=== PATIENT | female | born 1955 | race Caucasian/White ===

== ENCOUNTER → 2017-08-24 09:33 | Day surgery (SDC) | payer MEDICARE, MEDICAID, SELFPAY ==
[2017-08-23 13:11] VITALS: BMI 50.2
[2017-08-24 09:56] LABS: Hematocrit 33.8 % (37-47); Hemoglobin 10.7 g/dl (12.0-15.0); Mean Corp Hgb Conc 31.7 g/gl (32-36); Mean Corpuscular Hgb 32.8 pg (27.0-32.0); Mean Corpuscular Volume 103.7 fL (81-99); Mean Platelet Vol. 10.1 fl (6.2-12.0); Platelet Count 180 K/mm3 (150-450); RBC Distribution Width SD 55.7 fl (35.1-43.9); Red Blood Count 3.26 M/mm3 (4.2-5.4); White Blood Count 8.2 K/mm3 (4.4-11.0)
[2017-08-24 09:59] LABS: Scan Indicated on CBC? Y/N NO
[2017-08-24 10:08] LABS: Anion Gap 6 (5-15); BUN 14 mg/dL (7-18); BUN/Creat Ratio 3.1 RATIO (10-20); Calcium,Total 9.2 mg/dL (8.5-10.1); Chloride 104 mmol/L (98-107); Creatinine, Serum 4.48 mg/dL (0.55-1.02); EST Glomerular Filtration Rate 11 mL/min (>60); Est Glom Filt Rate - Afr Amer 13 mL/min (>60); Estimated Creatinine Clearance 13.61 ml/min; Glucose 122 mg/dL (74-106); Potassium 4.5 mmol/L (3.5-5.1); Sodium Level 142 mmol/L (136-145)
--- NOTE | 2017-08-24 12:29 | PCM.OPRPT ---
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 62-year-old female was taken to the special procedures lab. She was placed on the table. She received 50 mcg of fentanyl 1 mg of Versed. The right extremity sterilely prepped draped. Under ultrasound guidance micropuncture needle was inserted in the mid to more proximal right upper arm retrograde with flow. Micropuncture wire needle and guidewire inserted. 6 [place] short sheath dilator was inserted. An 035 angled Glidewire was used to place a 4 [place] angled glide cath into the brachial artery proximal to the anastomosis. Using Isovue contrast fistulogram was obtained of the upper arm. 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 It demonstrated an area of at least 90% stenosis within approximately 3 cm of the anastomosis. In addition there was central flow within backflow into the right internal jugular vein and no clear visible channel flow into the innominate SVC was identified. A slight lower of very faint contrast seen within the right atrium. The proximal fistula venous stenosis was treated with a 9 x 2 [facility] balloon over the 035 angled Glidewire. This was inflated to 22 tomasa of pressure. This was held for 3 minutes. Post treatment films demonstrated resolution of the inflow problem. This point I removed the sheath. I placed a U suture of 4-0 nylon. Hemostasis was intact. There was a pulse, thrill, bruit. My plan will be to see how she tolerates dialysis. If she continues to have difficulties with dialysis then would consider tertiary referral for treatment of the outflow high-grade critical stenosis at the innominate. Romero Obregon M.D., F.A.C.S. Type of Anesthesia:: IV Sedation
== END ==
PROVIDERS: Visit Provider Surgery
DX: T82.590A Other mechanical complication of surgically created arteriovenous fistula, initial encounter (principal); Z79.899 Other long term (current) drug therapy; Z79.82 Long term (current) use of aspirin; E78.00 Pure hypercholesterolemia, unspecified; G25.81 Restless legs syndrome; K21.9 Gastro-esophageal reflux disease without esophagitis; E11.9 Type 2 diabetes mellitus without complications; N17.9 Acute kidney failure, unspecified
CPT/HCPCS: 36415; 36902; 76937; 80048; 85027; 99152; 99153; J3010; Q9967; C1725; C1769